=== PATIENT | male | born 1990 | race Two or more races ===

== ENCOUNTER 2018-10-13 12:36 | Emergency (ER) | payer SELFPAY ==
[~2018-10-13] VITALS: Ht 180.3 cm; Wt 75.0 kg
[2018-10-13] MEDS ORDERED: IBUPROFEN 600MG TABLET PO ONE (13:45)
[2018-10-13 15:04] VITALS: BP 124/69
== END 2018-10-13 14:50 | disposition home or self-care (01) ==
LOC: ER 12:36
DX: S63.601A Unspecified sprain of right thumb, initial encounter (principal); W24.1XXA Contact with transmission devices, not elsewhere classified, initial encounter; Y93.89 Activity, other specified; Y92.89 Other specified places as the place of occurrence of the external cause; Y99.0 Civilian activity done for income or pay
CPT/HCPCS: 29125; 73110; 73130; 99283